=== PATIENT | female | born 1960 | race Caucasian/White ===

== ENCOUNTER → 2016-11-23 | Outpatient (CLI) | payer BC ==
[2016-11-23 12:44] LABS: CH 29.5; CHCM 33.8; HCT 42.4 % (34.0-46.0); HDW 2.86; MCH 28.9 pg (25.0-35.0); MCHC 32.9 g/dL (31.0-37.0); MCV 87.7 fL (80.0-100.0); Mean Platelet Volume 7.7; RBC 4.84 m/uL (3.80-5.40); RDW 13.6 % (11.5-15.5); WBC 9.4 k/uL (3.8-10.6)
== END | disposition home or self-care (01) ==
LOC: LABPAT 11:59
PROVIDERS: ATTEND Obstetrics & Gynecology
DX: Z01.810 Encounter for preprocedural cardiovascular examination (principal); I10 Essential (primary) hypertension
CPT/HCPCS: 85027; 93005

== ENCOUNTER 2016-12-07 07:25 | Day surgery (SDC) | payer BC ==
[2016-12-03 11:07] VITALS: BMI 41.3
[~2016-12-07 07:25] MED LIST: DEXAMETHASONE SOD PHOSPHATE 10 MG/ML 1 ML VIAL IV ONE; HYDROmorphone 1 MG/ML 1 ML SYRINGE IVP PRN; LACTATED RINGERS 1,000 ML IV ONE; LIDOCAINE 1% 20 ML VIAL (10MG/ML) FOR IV START INTRADERMA PRN; MIDAZOLAM 2 MG/2 ML VIAL IV PRN; ONDANSETRON 4 MG/2 ML VIAL IVP ONE; Pre Op ABX Message 1 EACH MISC MISCELLANE ONE; SCOPOLAMINE 1.5MG/72HR PATCH TRANSDERM ONE
[2016-12-07 07:59] VITALS: TEMP 98.3
[2016-12-07] MEDS ORDERED: LIDOCAINE 1% 20 ML VIAL (10MG/ML) FOR IV START SQ ONE (08:01)
[2016-12-07] MEDS ORDERED: ALBUTEROL INHALER 60 PUFF/8 GM INHALER INHALATION ONE (09:00)
[2016-12-07] MEDS ORDERED: fentaNYL (PF) 50 MCG/ML 2 ML AMP ONE (09:00)
[2016-12-07] MEDS ORDERED: PROPOFOL 10 MG/ML 20 ML VIAL IV ONE (09:00)
[2016-12-07] MEDS ORDERED: SUCCINYLCHOLINE CHLORIDE 100 MG/5 ML SYR IV ONE (09:00)
[2016-12-07] MEDS ORDERED: LIDOCAINE 1% INJ 10MG/ML (20 ML MDV) ONE (09:00)
[2016-12-07] MEDS ORDERED: MIDAZOLAM 2 MG/2 ML VIAL ONE (09:00)
[2016-12-07] MEDS ORDERED: KETOROLAC 30 MG/ML 1 ML VIAL ONE (09:00)
[2016-12-07] MEDS ORDERED: LIDOCAINE 1%-EPI 1:100,000 20 ML VIAL SUBMUCOSAL ONE ×2 (09:20→09:25)
--- NOTE | 2016-12-07 09:31 | P.OP ---
Date of Procedure: 12/07/16 Preoperative Diagnosis: Postmenopausal bleeding and cervical stenosis Postoperative Diagnosis: Postmenopausal bleeding, cervical stenosis, possible uterine Ashermans syndrome. Procedure(s) Performed: Diagnostic hysteroscopy and dilation and curettage Anesthesia: YISEL Surgeon: Nandini Manzano Estimated Blood Loss (ml): 5 IV fluids (ml): 350 Urine output (ml): 50 Pathology: other (Uterine curettings) Condition: stable Disposition: PACU Indications for Procedure: Postmenopausal bleeding and inability to access the endometrial canal office setting Operative Findings: Stenotic cervix. Endometrial cavity was somewhat obscured especially on the left side. The right tubal ostia was visualized. No gross intracavitary lesions. Description of Procedure: After the patient and her were met in the preoperative holding area and all questions were answered, she was taken to the operating room where anesthetic was administered without incident. She was in positioned, prepped and draped in the dorsal lithotomy position. The bladder was drained for approximately 50 mL of clear urine. The single-sided speculum was placed in the vagina and the cervix was grasped anteriorly with a single-tooth tenaculum. The cervix appeared firm and nulliparous with a pinpoint cervical os. The smallest the uterine dilator was used to gently open the cervical canal to allow for passage of the uterine sound. The uterus was sounded to 8 cm. The cervix was then sequentially dilated to allow for passage of the diagnostic hysteroscope. The hysteroscope was introduced and I felt confident that I was in the cervical canal and endometrial canal however the left side of the endometrial cavity seemed firm and obscured like possible Asherman syndrome. The right tubal ostia was visualized however the left was not. There were no other gross intracavitary lesions or polyps noted. The hysteroscope was removed and the cervix was further gently dilated to allow for passage of the small sharp banjo curet. The uterine cavity was curettaged with a small amount of tissue obtained. The curet was removed and the cervix was observed and no active bleeding was noted. Paracervical block was placed for postoperative pain control. The patient was awoken from anesthetic without incident and transported recovery area in stable condition. All counts were as correct by the operating room staff.
[2016-12-07 10:22] VITALS: RESP 18
[2016-12-07 11:01] VITALS: BP 127/71; PULSE 82
== END 2016-12-07 11:05 | disposition home or self-care (01) ==
LOC: OR 07:25
PROVIDERS: ATTEND Obstetrics & Gynecology
DX: N95.0 Postmenopausal bleeding (principal); N88.2 Stricture and stenosis of cervix uteri; E66.01 Morbid (severe) obesity due to excess calories; Z68.41 Body mass index [BMI] 40.0-44.9, adult; I10 Essential (primary) hypertension; Z79.899 Other long term (current) drug therapy
CPT/HCPCS: 88305; 58558; J2250; J1100; J2405; J2001; J3010; J1885; J0330; J2704

== ENCOUNTER 2017-01-10 11:06 | Day surgery (SDC) | payer BC ==
[2017-01-05 13:48] VITALS: BMI 40.6
[~2017-01-10 11:06] MED LIST changes: -DEXAMETHASONE SOD PHOSPHATE 10 MG/ML 1 ML VIAL IV ONE; -HYDROmorphone 1 MG/ML 1 ML SYRINGE IVP PRN; -LACTATED RINGERS 1,000 ML IV ONE; +LACTATED RINGERS 1,000 ML IV SCH; -LIDOCAINE 1% 20 ML VIAL (10MG/ML) FOR IV START INTRADERMA PRN; -MIDAZOLAM 2 MG/2 ML VIAL IV PRN; -ONDANSETRON 4 MG/2 ML VIAL IVP ONE; -Pre Op ABX Message 1 EACH MISC MISCELLANE ONE; -SCOPOLAMINE 1.5MG/72HR PATCH TRANSDERM ONE
[2017-01-10 11:33] VITALS: TEMP 97.6
[2017-01-10] MEDS ORDERED: PROPOFOL 10 MG/ML 20 ML VIAL IV ONE (13:08)
[2017-01-10] MEDS ORDERED: LIDOCAINE 1% INJ 10MG/ML (20 ML MDV) ONE (13:08)
--- NOTE | 2017-01-10 13:39 | P.PCN ---
Date of Procedure: 01/10/17 Procedure(s) Performed: Procedure: Colonoscopy and polypectomy. Preoperative diagnosis: Screening for neoplasia. Postoperative diagnosis: 1. Small sigmoid polyp snared but no large polyps or cancer. 2. Mild sigmoid diverticulosis with no evidence of acute diverticulitis or strictures. Preparation: HalfLytely prep. Sedation: Was provided by anesthesia. Brief clinical history: The patient is a 56-year-old female who is referred for this evaluation for screening for neoplasia. The patient has no abdominal complaints, bleeding or anemia. No family history of colon cancer. 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 She is having a hysterectomy tomorrow. Procedure: With the patient on her left lateral decubitus position and after informed consent and adequate sedation, the perianal area was inspected and it did not show any fissures or fistulas. There were no masses felt on digital rectal examination. The Olympus CFQ 160L video colonoscope was then inserted in the rectum in the usual fashion and advanced to the cecum. There was occasional small diverticular orifices seen in the distal sigmoid. Also, in the sigmoid, around 45 cm from the anal verge, there was a half a centimeter polyp that was snared and retrieved by suction. There were no large polyps or cancer. The mucosa appeared healthy. I retroflexed endoscope in the rectum before the endoscope was withdrawn. The patient tolerated the procedure well. Plan: The patient was reassured. Discussed dietary measures. I recommended repeat colonoscopy in 5 years. I see no reason, based on this exam, to change the plans for her hysterectomy tomorrow.
[2017-01-10 13:59] VITALS: BP 138/78; PULSE 69; RESP 18
== END 2017-01-10 14:03 | disposition home or self-care (01) ==
LOC: ORWHC2ENDO 11:06
DX: Z12.11 Encounter for screening for malignant neoplasm of colon (principal); D12.5 Benign neoplasm of sigmoid colon; K57.30 Diverticulosis of large intestine without perforation or abscess without bleeding; I10 Essential (primary) hypertension; Z79.899 Other long term (current) drug therapy
CPT/HCPCS: 45385; 88305; J2001; J2704; 99153

== ENCOUNTER → 2017-02-02 | Outpatient (CLI) | payer BC ==
--- NOTE | 2017-02-03 07:51 | MM ---
Reason for exam: screening (asymptomatic). Last mammogram was performed 1 year ago. History: Patient is postmenopausal. Family history of breast cancer in sister at age 53 and breast cancer in paternal aunt at age 60. Physical Findings: A clinical breast exam by your physician is recommended on an annual basis and results should be correlated with mammographic findings. MG 3D Screening Mammo W/Cad Bilateral CC and MLO view(s) were taken. Prior study comparison: February 02, 2016, bilateral MG screening mammo w CAD. January 06, 2015, bilateral MG screening mammo w CAD. November 15, 2012, bilateral digital screening mammo w/CAD. There are scattered fibroglandular densities. Finding: There are typically benign round calcifications in both breasts. There is no discrete abnormality. ASSESSMENT: Benign, BI-RAD 2 RECOMMENDATION: Routine screening mammogram of both breasts in 1 year.
== END | disposition home or self-care (01) ==
LOC: RADMAMWWP 10:11
PROVIDERS: ATTEND Family Medicine
DX: Z12.31 Encounter for screening mammogram for malignant neoplasm of breast (principal)
CPT/HCPCS: 77063; G0202

== ENCOUNTER → 2018-04-27 | Outpatient (CLI) | payer BC ==
--- NOTE | 2018-05-01 11:25 | MM ---
Reason for exam: screening (asymptomatic). Last mammogram was performed 1 year and 3 months ago. History: Patient is postmenopausal. Family history of breast cancer in sister at age 53 and breast cancer in paternal aunt at age 60. Physical Findings: A clinical breast exam by your physician is recommended on an annual basis and results should be correlated with mammographic findings. MG 3D Screening Mammo W/Cad Bilateral CC and MLO view(s) were taken. Prior study comparison: February 02, 2017, bilateral MG 3d screening mammo w/cad. February 02, 2016, bilateral MG screening mammo w CAD. There are scattered fibroglandular densities. No suspicious abnormality. ASSESSMENT: Negative, BI-RAD 1 RECOMMENDATION: Routine screening mammogram of both breasts in 1 year.
== END | disposition home or self-care (01) ==
LOC: RADMAMWWP 16:39
PROVIDERS: ATTEND Family Medicine
DX: Z12.31 Encounter for screening mammogram for malignant neoplasm of breast (principal)
CPT/HCPCS: 77063; 77067

== ENCOUNTER → 2018-05-15 | Outpatient (CLI) | payer BC ==
[2018-05-15 09:12] LABS: ALT 38 U/L (9-52); AST 19 U/L (14-36); Albumin 4.1 g/dL (3.5-5.0); Alkaline Phosphatase 64 U/L (38-126); Anion Gap 8 mmol/L; Blood Urea Nitrogen 16 mg/dL (7-17); Carbon Dioxide 28 mmol/L (22-30); Chloride 106 mmol/L (98-107); Cholesterol 159 mg/dL (<200); Glucose 104 mg/dL (74-99); HDL Cholesterol 39 mg/dL (40-60); LDL Cholesterol,Calculated 88 mg/dL (0-99); Potassium 4.6 mmol/L (3.5-5.1); Sodium 142 mmol/L (137-145); Total Bilirubin 0.3 mg/dL (0.2-1.3); Total Protein 6.8 g/dL (6.3-8.2); Triglycerides 161 mg/dL (<150)
[2018-05-15 09:43] LABS: Basophils # (A) 0.1 k/uL (0-0.2); Basophils % (A) 1 %; Eosinophils # (A) 0.1 k/uL (0-0.7); Eosinophils % (A) 2 %; HCT 43.3 % (34.0-46.0); HGB 14.2 gm/dL (11.4-16.0); Lymphocytes # (A) 1.7 k/uL (1.0-4.8); Lymphocytes % (A) 23 %; MCH 28.6 pg (25.0-35.0); MCHC 32.7 g/dL (31.0-37.0); MCV 87.3 fL (80.0-100.0); Mean Platelet Volume 7.1; Monocytes # (A) 0.4 k/uL (0-1.0); Monocytes % (A) 5 %; Neutrophils # (A) 5.1 k/uL (1.3-7.7); Neutrophils % (A) 68 %; Platelet Count 245 k/uL (150-450); RBC 4.96 m/uL (3.80-5.40); RDW 14.3 % (11.5-15.5); WBC 7.6 k/uL (3.8-10.6)
== END | disposition home or self-care (01) ==
LOC: LABWHC1 08:32
PROVIDERS: ATTEND Family Medicine
DX: Z00.00 Encounter for general adult medical examination without abnormal findings (principal)
CPT/HCPCS: 36415; 80053; 80061; 84443; 85025

== ENCOUNTER → 2018-05-22 | Outpatient (CLI) | payer BC ==
--- NOTE | 2018-05-22 16:03 | US ---
EXAMINATION TYPE: US kidneys/renal and bladder DATE OF EXAM: 05/22/2018 COMPARISON: NONE CLINICAL HISTORY: 57-year-old female R10.9 Unspecified abdominal pain. Left flank pain x 2 months TECHNIQUE: Multiple sonographic images of the kidneys and bladder are obtained. FINDINGS: Right Kidney: 10.1 x 5.4 x 5.6 cm without hydronephrosis. Left Kidney: 11.3 x 5.3 x 5.5 cm with mild pelvocaliectasis. No gross abnormality of the bladder. Neither ureteral jet is seen during the course of the exam. IMPRESSION: Mild left-sided pelvicaliectasis which may be transient. Short interval follow-up if clinically indic ated.
== END ==
LOC: RADUSWWP 14:50
PROVIDERS: ATTEND Family Medicine
DX: N13.30 Unspecified hydronephrosis (principal)
CPT/HCPCS: 76770

== ENCOUNTER → 2018-06-27 | Outpatient (CLI) | payer BC ==
[2018-06-27 13:37] LABS: Blood Urea Nitrogen 20 mg/dL (7-17)
--- NOTE | 2018-06-27 22:26 | MR ---
EXAMINATION TYPE: MR brain wo/w con DATE OF EXAM: 06/27/2018 COMPARISON: NONE HISTORY: 57-year-old female eye travels out and down TECHNIQUE: Multiplanar, multisequence images of the brain and brainstem were acquired before and aft er administration of 9 mL IV Gadavist. Diffusion weighted imaging is performed. FINDINGS: No evidence for acute infarction, hemorrhage, mass, mass effect, midline shift, herniation, effacemen t of basal cisterns, or extra-axial fluid collection. The ventricles and sulci are age-appropriate with mild bifrontal cortical atrophy. Major intracranial flow voids are intact. T2/FLAIR weighted sequences show mild scattered burden of white matter change in the subcortical and periventricular regions of both cerebral hemispheres, approximately 5 in the right cerebral hemispher e in 10-15 in the left cerebral hemisphere. Midline structures demonstrate a partially empty sella and otherwise normal morphology. The cranioce rvical junction is normal. There is no midbrain or intraventricular lesion identified. No abnormal basal meningeal enhancement. There is symmetric enhancement within the cavernous sinuses. Post contrast images demonstrate no evidence of pathologic enhancement. Dural venous sinuses are pat ent. There is trace mucosal thickening within the ethmoid air cells and maxillary sinuses. Orbits and glob es are intact. No intraorbital abnormality or enhancing lesions are seen within the orbits. Patient's gaze is divergent. IMPRESSION: 1. 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 MR angiograph y is reported separately. 2. Mild bifrontal atrophy and scattered T2 bright white matter change, nonspecific, likely relating t o mild burden of chronic small vessel ischemic disease.
--- NOTE | 2018-06-27 22:30 | MR ---
EXAMINATION TYPE: MR angio head wo con DATE OF EXAM: 06/27/2018 COMPARISON: None HISTORY: 57-year-old female, right eye travels out and down, he saw of cranial nerves. TECHNIQUE: High-resolution 3-D [id number] imaging focusing on the [place] of Yi were performed without contrast. Rotational 3-D reconstructions generated on a dedicated independent workstation. FINDINGS: Anterior and posterior circulation is widely patent. No significant stenosis, arterial occlusion, or aneurysmal changes seen. The bilateral posterior communicating arteries are small or hypoplastic. IMPRESSION: No significant stenosis, arterial occlusion, or aneurysm involving the [place] of Yi.
== END | disposition home or self-care (01) ==
LOC: RADMRIMAIN 13:03
PROVIDERS: ATTEND Ophthalmology
DX: G31.9 Degenerative disease of nervous system, unspecified (principal); R90.89 Other abnormal findings on diagnostic imaging of central nervous system
CPT/HCPCS: 82565; 84520; 70544; 70553; A9581

== ENCOUNTER → 2019-06-21 | Outpatient (CLI) | payer BC ==
--- NOTE | 2019-06-25 09:37 | MM ---
Reason for exam: screening (asymptomatic). Last mammogram was performed 1 year and 2 months ago. History: Patient is postmenopausal. Family history of breast cancer in sister at age 53 and breast cancer in paternal aunt at age 60. Physical Findings: A clinical breast exam by your physician is recommended on an annual basis and results should be correlated with mammographic findings. MG 3D Screening Mammo W/Cad Bilateral CC and MLO view(s) were taken. Prior study comparison: April 27, 2018, bilateral MG 3d screening mammo w/cad. February 02, 2017, bilateral MG 3d screening mammo w/cad. No significant changes when compared with prior studies. ASSESSMENT: Benign, BI-RAD 2 RECOMMENDATION: Routine screening mammogram of both breasts in 1 year.
== END | disposition home or self-care (01) ==
LOC: RADMAMWWP 08:15
PROVIDERS: ATTEND Family Medicine
DX: Z12.31 Encounter for screening mammogram for malignant neoplasm of breast (principal)
CPT/HCPCS: 77063; 77067

== ENCOUNTER → 2019-08-13 | Outpatient (CLI) | payer BC ==
[2019-08-14 12:02] LABS: Thyroid Stim Immun Quant <0.10 IU/L (<0.10)
== END | disposition home or self-care (01) ==
LOC: LABWHC1 16:23
PROVIDERS: ATTEND Ophthalmology
DX: H53.2 Diplopia (principal); G70.00 Myasthenia gravis without (acute) exacerbation
CPT/HCPCS: 36415; 83519; 84439; 84443; 84445; 84481

== ENCOUNTER → 2019-08-25 | Outpatient (CLI) | payer BC ==
--- NOTE | 2019-08-25 10:06 | MR ---
EXAMINATION TYPE: MR orbits wo/w con DATE OF EXAM: 08/25/2019 COMPARISON: Previous study dated 06/27/2018. HISTORY: Prior brain 2018, diplopia right eye TECHNIQUE: Multiplanar, multisequence images of the brain and brainstem is performed without and with IV contras t, utilizing 10ml mL intravenous Gadavist . FINDINGS: Midline structures are unremarkable. There is a normal craniocervical junction. There are normal vascular flow voids. There is minimal mucoperiosteal thickening involving the ethmoid air cells. The orbits appear normal. There is no intraconal or extraconal mass lesion. There is no enhancement o f the optic nerve. The ocular muscles appear intact. IMPRESSION: Normal MRI of the orbits.
== END | disposition home or self-care (01) ==
LOC: RADMRIMAIN 08:53
PROVIDERS: ATTEND Ophthalmology
DX: H53.2 Diplopia (principal)
CPT/HCPCS: 70543; A9585

== ENCOUNTER → 2024-11-07 | Outpatient (CLI) | payer MEDICARE ==
--- NOTE | 2024-11-07 14:06 | BD ---
EXAMINATION TYPE: Axial Bone Density DATE OF EXAM: 11/07/2024 CLINICAL HISTORY: 64 years old Female. ICD-10 CODE: M81.0 AGE RELATED OSTEOPOROSIS , Additional Hist ory: Height: 59.2 in Weight: 198 lbs FRAX RISK QUESTIONS: History of Fracture in Adulthood: [place] ankle fx age 53 Secondary Osteoporosis: MEDICATIONS: Osteoporosis Medications: yes Which medication: Fosamax How Lon years EXAM MEASUREMENTS: Bone mineral densitometry was performed using the [employer] System. Bone mineral density as measured about the Lumbar spine is: ----- L1-L4(G/cm2): 1.190 T Score Values are as follows: ----- L1: -1.4 ----- L2: 0.0 ----- L3: -0.4 ----- L4: 1.5 ----- L1-L4: 0.1 Z Score Values are as follows: ----- L1: -0.6 ----- L2: 0.8 ----- L3: 0.3 ----- L4: 2.2 ----- L1-L4: 0.9 Bone mineral density baseline Bone mineral density about the R hip (g/cm2): 0.873 Bone mineral density about the L hip (g/cm2): 0.947 T Score values are as follows: -----R Neck: -2.2 -----L Neck: -2.0 -----R Total: -1.1 -----L Total: -0.5 Z Score values are as follows: -----R Neck: -1.3 -----L Neck: -1.1 -----R Total: -0.4 -----L Total: 0.2 Bone mineral density baseline FRAX%s: The graph provided illustrates a 17.6% chance for a major osteoporotic fx and a 3.1% chance f or the hips probability for fx in 10 years time. IMPRESSION: Normal (Values between +1 and -1 indicate normal bone mass). Consider repeating this study in 5 year s or sooner if there is some new clinical indication. NOTE: T-SCORE=SD OF THE YOUNG ADULT MEAN. [facility], , 11/07/2024 2:04 PM
== END | disposition home or self-care (01) ==
LOC: RADBDWWP 11:21
PROVIDERS: ATTEND Family Medicine
DX: M81.0 Age-related osteoporosis without current pathological fracture (principal)
CPT/HCPCS: 77080